=== PATIENT | female | born 1980 | race Caucasian/White ===

== ENCOUNTER 2020-10-04 12:43 | Emergency (ER) | payer OTHER ==
[~2020-10-04] VITALS: Ht 170.2 cm; Wt 113.2 kg
--- NOTE | 2020-10-04 13:41 | REP ---
INDICATION: R shoulder pain s/p fall COMPARISON: None. TECHNIQUE: Three views right shoulder. FINDINGS: There is no evidence of acute fracture, dislocation, or intrinsic bone disease.There is a tiny tendinous calcification along the superolateral margin of the humeral head. IMPRESSION: No fracture or dislocation. Tiny tendinous calcification along the superolateral margin of the humeral head. <Electronically signed by Danial Haddad > 10/04/20 [id number]
[2020-10-04 14:36] VITALS: BP 106/70
== END 2020-10-04 14:38 | disposition home or self-care (01) ==
LOC: M ED 12:43
DX: S46.011A Strain of muscle(s) and tendon(s) of the rotator cuff of right shoulder, initial encounter (principal); W06.XXXA Fall from bed, initial encounter; Y92.9 Unspecified place or not applicable; Y93.9 Activity, unspecified; Y99.9 Unspecified external cause status; M75.21 Bicipital tendinitis, right shoulder; F17.200 Nicotine dependence, unspecified, uncomplicated; Z88.0 Allergy status to penicillin